=== PATIENT | male | born 1955 | race Hispanic/Latino ===

== ENCOUNTER 2018-12-09 15:12 | Inpatient (IN) | payer OTHER | END 2018-12-11 16:30 | disposition home or self-care (01) | LOC: EDH 15:12 → EDHIP 18:28 → 4CH 23:16 | DX: J44.1 Chronic obstructive pulmonary disease with (acute) exacerbation (principal); F17.210 Nicotine dependence, cigarettes, uncomplicated; M06.9 Rheumatoid arthritis, unspecified ==

== ENCOUNTER → 2023-04-03 | Outpatient (CLI) | payer OTHER ==
[~2023-04-03] MED LIST: ALBU8.5H8 IH; AMOX-429 PO; BENZ-17 PO; FLUT1BLS IH; FOLI0.4T6 PO; FOLI1TAB15 PO; HYDR200T75 PO; HYDR200T82 PO; METH2.5T6 PO; PRED20B PO; SULF500T8 PO
== END | disposition home or self-care (01) ==
LOC: RAH 14:37
PROVIDERS: ATTEND Internal Medicine
DX: I82.431 Acute embolism and thrombosis of right popliteal vein (principal); I82.411 Acute embolism and thrombosis of right femoral vein
CPT/HCPCS: 93971